=== PATIENT | female | born 1955 | race Caucasian/White ===

== ENCOUNTER 2016-08-31 10:36 | Day surgery (SDC) | payer BC ==
[~2016-08-31] VITALS: Ht 154.9 cm; Wt 60.0 kg
[2016-08-31] VITALS (8 sets, daily range): BP systolic 128–156; BP diastolic 58–74; PULSE 64–87; RESP 16–24; Ht 154.9 cm; Wt 60.0 kg
--- NOTE | 2016-08-31 08:28 | HPN ---
Date/Time of Note Date/Time of Note DATE: 08/31/16 TIME: 08:28 Interval H&P Admission Note Pt. seen H&P reviewed: No system changes HELENE CONN MD Aug 31, 2016 08:28
[2016-08-31] MEDS ORDERED: SIMV10TA PO (11:08)
[2016-08-31] MEDS ORDERED: CEFAZOLIN 2 GM/50 ML (PMX) 50 ML IVPB ONE (12:00)
[2016-08-31] MEDS ORDERED: FENTAnyl 50 MCG/ML VIAL ONE (12:34)
[2016-08-31] MEDS ORDERED: LIDOCAINE 2% 20 ML UROJET SYRINGE ONE (12:55)
[2016-08-31] MEDS ORDERED: PROPOFOL 40 ML ONE (13:00)
[2016-08-31] MEDS ORDERED: LIDOCAINE 2% (SDV) 5 ML INJ ONE (13:00)
[2016-08-31] MEDS ORDERED: NEOSTIGMINE 3 MG/3 ML SYRINGE ONE (13:00)
[2016-08-31] MEDS ORDERED: ROCURONIUM 50 MG INJ ONE (13:00)
[2016-08-31] MEDS ORDERED: SUCCINYLCHOLINE CHLORIDE 100 MG/5 ML SYG IV ONE (13:00)
[2016-08-31] MEDS ORDERED: CEFAZOLIN 1 GM INJ ONE (13:00)
[2016-08-31] MEDS ORDERED: GLYCOPYRROLATE 0.4 MG INJ ONE (13:00)
[2016-08-31] MEDS ORDERED: DIPHENHYDRAMINE 50 MG INJ IV PRN (13:30)
[2016-08-31] MEDS ORDERED: METOCLOPRAMIDE 10 MG INJ IV PRN (13:30)
[2016-08-31] MEDS ORDERED: HYDROmorphONE (0.2 MG/ML) 10ML SYG IV PRN ×3 (13:30)
[2016-08-31] MEDS ORDERED: FENTAnyl 50 MCG/ML VIAL IV PRN (13:30)
[2016-08-31] MEDS ORDERED: MEPERIDINE 25 MG INJ IV PRN (13:30)
[2016-08-31] MEDS ORDERED: ONDANSETRON 4 MG INJ IV PRN (13:30)
[2016-08-31] MEDS ORDERED: HYDROCODONE/APAP (5/325) TAB PO PRN (14:00)
--- NOTE | 2016-08-31 15:18 | OPR ---
DATE OF OPERATION: 08/31/2016 PREOPERATIVE DIAGNOSIS: Left ureteral stone. POSTOPERATIVE DIAGNOSIS: Left ureteral stone. OPERATION PERFORMED: Cystoscopy, left ureteroscopy, laser lithotripsy, and insertion of left ureter al JJ stent, 6-English x 22 cm long. TECHNIQUE: The patient was brought to the operating room. General anesthesia was induced. The pat ient was positioned in the lithotomy position. Time out was done. The patient was identified by he r name, date, the procedure, and the site of the procedure. The patient was given 2 grams of Ancef IV at the start of the procedure. Then, #21 English cystoscope sheath was introduced into the bladder, and the left ureteral orifice was visualized. Fluoroscopy was done, and one could see the stone over the left sacroiliac area. Then I passed the 5-English open-ended ureteral catheter into t he distal left ureter, and through that, I passed a 0.035 zipwire and advanced it. As it reached th e level of the stone, it would not go through. It was hitting the stone and bouncing back. After m ultiple attempts, therefore, and without success, then I decided to inject a mixture of 2% lidocaine and normal saline. Then I injected about 8 mL of this mixture. Then I passed the wire, and the wi re then went up very easily up to the kidney. Once the wire went up to the kidney, then I pulled ou t the 5-English open-ended and reintroduced it through the second working channel, and then I passed a 0.035 sensor wire and advanced it all the way up to the kidney. Then, I removed the open-ended an d left the [address] and removed the cystoscope. The sensor wire was used as a safety wire, and the other wire was used to advance on it the short rigid ureteroscope, and I advanced it into th e ureter to the level of the stone. Once we reached the stone, the wire was removed, and 365 holmiu m laser fiber was used. The stone was broken into multiple smaller pieces. Then I basketed these p ieces out and dropped them into the bladder. There was 1 piece that was still a little large, so I did break that again with the laser into more smaller pieces. Then I did basket the remaining piece s out of the ureter and into the bladder. Once that was done, I was able to advance the ureteroscop e way above where the stone is and in the proximal ureter, and there were no additional fragments. The ureter was clear from any stone fragments. At that moment, I removed the ureteroscope. I then introduced the cystoscope into the bladder and drained the stone fragments out. Then, I reintroduce d the cystoscope on the safety wire, and on the safety wire, I advanced a 6-English x 22 cm long JJ s tent. It had its proximal end curling into the kidney and the distal end curling into the bladder. The distal end is attached to a string that was taped to her right groin so we could remove the JJ stent in about 3 to 4 days without having to do a cystoscopy. The string was taped to her groin usi ng 2 pieces of Tegaderm. The patient tolerated the procedure well and was transferred to [facility] in stable and satisfactory condition. Dictated By: HELENE CASTILLO/DONATO Conf#: [id number] DID#: [id number]
--- NOTE | 2016-09-01 12:54 | RADRPT ---
PROCEDURE: Retrograde cystogram CLINICAL INDICATION: Intraoperative imaging for cystoscopy and retrograde cystogram. TECHNIQUE: Intraoperative cystoscopy and retrograde cystogram was performed. Fluoroscopy was provi ded. Spot images were obtained. COMPARISON: None available FINDINGS: Spot images were obtained during the performance a retrograde cystogram by Dr. Dobbins. No radiologist was present during the procedure. No diagnosis was made from these images. Refer to the dedicated report by the attending urologist for additional details. 144 seconds fluoroscopic time was utilized. 9 fluoroscopic images were obtained. IMPRESSION: 1. Intraoperative images acquired during performance of cystoscopy and retrograde cystogram. RPTAT: QQ .Brayden Huerta MD, Date Time Electronically viewed and signed by .Brayden Huerta MD, on 09/01/2016 12:54 .[place]
== END 2016-08-31 16:20 | disposition home or self-care (01) ==
LOC: SDS 10:36 → REC 10:36 → SDS 16:20
PROVIDERS: ATTEND Urology
DX: N20.1 Calculus of ureter (principal); E78.5 Hyperlipidemia, unspecified
CPT/HCPCS: 52356; 74430; 87086; 88300; C2617; J0690; J2175; J2405; J2710; J3010; J7999; Z7512; Z7610